=== PATIENT | female | born 1985 | race Two or more races ===

== ENCOUNTER 2024-12-11 05:10 | Emergency (ER) | payer MEDICAID, OTHER ==
[~2024-12-11] VITALS: Ht 160 cm; Wt 86.3 kg
[2024-12-11] MEDS: ALBUTEROL SULF 2.5 MG/0.5ML(0.5%) NEB SOLN NEB ONE (05:44)
[2024-12-11] MEDS: IPRATROPIUM BROM 0.5 MG/2.5ML INH SOL NEB ONE (05:44)
[2024-12-11 05:57] VITALS: BP 114/72; PULSE 114; RESP 18; TEMP 98.9; O2SAT 96
--- NOTE | 2024-12-11 07:21 | ED.PDOC ---
SOB-HPI HPI Comments This is a 39 year-old female who presents to the ED with a chief complaint of Asthma exacerbation with associated SOB and cough for X2 days. Patient reports associated "tightness in chest" with an inability to take full breaths. Patient reports using both Nebulizer and Humidifier at home, but denies any relief post treatment. Patient has no further complaints at this time and otherwise denies further symptoms of chest pain, N/V, dizziness, headache, or fever. Chief Complaint: Asthma Time Seen by MD: 07:10 Reviewed notes: Medications, Allergies Information Source: Patient Mode of Arrival: Ambulatory Severity: Moderate Timing: Days Duration: Since onset History of: Asthma Associated Signs and Symptoms: Cough, Other (SOB ) Radiation: No Radiation Past Medical History PAST MEDICAL HISTORY: Asthma Past Medical History (Other): Lupus Surgical History: Denies all surgeries [employer] History: No Pertinent [employer] History Family History Family History: Reviewed,noncontributory to illness, No family hx of Cancer, No family hx of DM, No family hx of Heart julianna, No family hx of HTN, No family hx ofKidney julianna, No family hx of Liver julianna, No family hx of Lung julianna, No family hx of Stroke Social History Smoker: Non-Smoker Alcohol: Denies ETOH Use Drugs: Denies Drug Use Lives In: Home Constitutional: denies: chills, diaphoresis, fatigue, fever, malaise, sweats, weakness, others EENTM: denies: blurred vision, double vision, ear bleeding, ear discharge, ear drainage, ear pain, ear ringing, eye pain, eye redness, hearing loss, mouth pain, mouth swelling, nasal discharge, nose bleeding, nose congestion, nose pain, photophobia, tearing, throat pain, throat swelling, voice changes, others Respiratory: reports: cough, SOB at rest, shortness of breath, SOB with exc ertion; denies: hemoptysis, orthopnea, stridor, wheezing, others Cardiovascular: denies: chest pain, dizzy spells, diaphoresis, Dyspnea on exertion, edema, irregular heart beat, left arm pain, lightheadedness, palpitations, PND, syncope, others Gastrointestinal: denies: abdomen distended, abdominal pain, blood streaked bowels, constipated, diarrhea, dysphagia, difficulty swallowing, hematemesis, melena, nausea, poor appetite, poor fluid intake, rectal bleeding, rectal pain, vomiting, others Genitourinary: denies: abnormal vagina bleeding, burning, dyspareunia, dysuria, flank pain, frequency, hematuria, incontinence, pain, , vagina discharge, urgency, others Neurological: denies: dizziness, fainting, headache, left sided numbness, left sided weakness, numbness, paresthesia, pre-existing deficit, right sided numbness, right sided weakness, seizure, speech problems, tingling, tremors, weakness, others Musculoskeletal: denies: back pain, gout, joint pain, joint swelling, muscle pain, muscle stiffness, neck pain, others Integumetry: denies: bruises, change in color, change in hair/nails, dryness, laceration, lesions, lumps, rash, wounds, others Allergic/Immunocompromised: denies: Difficulty Healing, Frequent Infections, H dafne, Itching, others Hematologic/Lymphatic: denies: anemia, blood clots, easy bleeding, easy bruising, swollen glands, others Endocrine: denies: excessive hunger, excessive sweating, excessive thirst, excessive urination, flushing, intolerance to cold, intolerance to heat, unexplained weight gain, unexplained weight loss, others Psychiatric: denies: anxiety, bipolar disorder, depression, hopeless, panic disorder, schizophrenia, sleepless, suicidal, others All Other Systems: Reviewed and Negative Physical Exam General Appearance: Moderate Distress HEENT: Normal ENT Inspection, Pharynx Normal, TMs Normal Neck: Full Range of Motion, Non-Tender, Normal, Normal Inspection Respiratory: Wheezing Cardiovascular: No Edema, No JVD, No Murmur, No Gallop, Normal Peripheral Pulses, Tachycardia Breast Exam: Deferred Gastrointestinal: No Organomegaly, Non Tender, No Pulsatile Mass, Normal Bowel Sounds, Soft Genitalia: Deferred Pelvic: Deferred Rectal: Deferred Extremities: No calf tenderness, Normal capillary refill, Normal inspection, Normal range of motion, Non-tender, No pedal edema Musculoskeletal : Apperance: Normal Neurologic: Alert, haz tech II-XII nml as Tested, No Motor Deficits, Normal Affect, Normal Mood, No Sensory Deficits Cerebellar Function: Normal Reflexes: Normal Skin: Dry, Normal Color, Warm Peripheral Pulses: 3+ Radial (R), 3+ Radial (L) Lymphatic: No Adenopathy Was a procedure done? Was a procedure done?: No Differential Dx Differential Diagnosis: Anxiety, Asthma, Bronchitis, COPD, Hypertension, Panic Attack, Pneumonia, Sinusitis X-Ray, Labs, Meds, VS Vital Signs Date Time Temp Pulse Resp B/P (MAP) Pulse Ox O2 Delivery O2 Flow Rate FiO2 12/11/24 05:57 98.9 114 18 114/72 (86) 96 98.9 12/11/24 05:44 22 96 Room Air* 0 21 12/11/24 05:12 98.6 125 26 124/78 95 98.6 Lab Test 12/11/24 07:39 Range/Units White Blood Count 13.4 H 4.4-10.8 10^3/uL Red Blood Count 4.68 4.0-5.20 10^6/uL Hemoglobin 14.4 12.2-16.2 g/dL Hematocrit 42.6 36.0-46.0 % Mean Corpuscular Volume 90.8 80.0-100.0 fL Mean Corpuscular Hemoglobin 30.6 28.0-32.0 pg Mean Corpuscular Hemoglobin Concent 33.7 32.0-36.0 g/dL Red Cell Distribution Width 14.5 H 11.8-14.3 % Platelet Count 378 140-450 10^3/uL Mean Platelet Volume 7.4 6.9-10.8 fL Neutrophils (%) (Auto) 87.9 H 37.0-80.0 % Lymphocytes (%) (Auto) 6.4 L 10.0-50.0 % Monocytes (%) (Auto) 2.8 0.0-12.0 % Eosinophils (%) (Auto) 2.6 0.0-7.0 % Basophils (%) (Auto) 0.3 0.0-2.0 % Neutrophils # (Auto) 11.8 H 1.6-8.6 10 ^3/uL Lymphocytes # (Auto) 0.9 0.4-5.4 10 ^3/uL Monocytes # (Auto) 0.4 0-1.3 10 ^3/uL Eosinophils # (Auto) 0.4 0-0.8 10 ^3/uL Basophils # (Auto) 0 0-0.2 10 ^3/uL Nucleated Red Blood Cells 0.0 % Sodium Level 140 136-145 mmol/L Potassium Level 3.8 3.5-5.1 mmol/L Chloride Level 104 98-107 mmol/L Carbon Dioxide Level 26 20-31 mmol/L Anion Gap 10 5-15 Blood Urea Nitrogen 16 9-23 mg/dL Creatinine 0.80 0.550-1.02 mg/dL Glomerular Filtration Rate Calc 95 >90 mL/min BUN/Creatinine Ratio 20.0 10.0-20.0 Serum Glucose 175 H 74-106 mg/dL Calcium Level 9.3 8.7-10.4 mg/dL Current Medications Medications (Trade) Dose Ordered Sig/Erin Route Start Time Stop Time Status Last Admin Albuterol (Ventolin Medneb) 5 mg ONCE ONCE NEB 12/11/24 05:15 12/11/24 05:16 DC 12/11/24 05:44 Ipratropium [place] (Atrovent Medneb) 0.5 mg ONCE ONCE NEB 12/11/24 05:15 12/11/24 05:16 DC 12/11/24 05:44 Dexamethasone Sodium Phosphate (Decadron Injection) 10 mg ONCE ONCE IM 12/11/24 05:15 12/11/24 05:16 DC 12/11/24 05:31 [place] [id number] Ph: [phone] DIAGNOSTIC IMAGING Diagnostic Imaging Report : [id number] Signed PATIENT: LEYDI MAGDALENO ACCT: [id number] UNIT: [id number] : 1985 LOC: ER ROOM / BED: / AGE / SEX: 39 / F ADM STATUS: REG ER SERVICE [id number] ORDERING PHYSICIAN: HERACLIO OLIVIER MD PROCEDURE(s): CXRP - CHEST PORTABLE REASON: sob ORDER NUMBER(s): [id number], ACCESSION NUMBER(s): [id number] CHEST RADIOGRAPH Indication: sob Technique: Single frontal view of the chest was obtained COMPARISON: None FINDINGS: Lines and Tubes: None Lungs: Clear Pleura: No effusion. No pneumothorax. Cardiomediastinal contours: Unremarkable Bones: Unremarkable IMPRESSION: No acute disease. Patient alert. Complaining of shortness a breath. History of asthma lupus. She does take prednisone daily. Was given breathing treatment. Was given dexamethasone. Blood sugar elevated. Possibly from steroid use. WBC slightly elevated. Possibly from steroid use. Hemoglobin within normal limits. Continues to have shortness a breath. Explained to the patient. Continue monitoring. Time of 1ST Reevaluation: 07:53 Reevaluation 1ST: Unchanged Patient Education/Counseling: Diagnosis, Treatment Family Education/Counseling: No Family Present SEPSIS Sepsis Screen Date sepsis recognized/suspect: Dec 11, 2024 Time Sepsis recognized/suspect: 0517 Recent Procedure: No On Antibiotic Therapy: No Respiratory Rate >20: Yes Heart Rate >90: Yes Temp<36 C (96.8 F) or >38.3 C: No SBP <90 or MAP <65 mmHG: No New Acute Mental Status Change: No Is the patient on CPAP, BIPAP,: No Physician Orders Chest Portable (12/11/24 07:22) Urinalysis (12/11/24 07:22) Ceftriaxone 1gm/50ml D5w (Rocephin) (12/11/24 08:15) Vital Signs Date Time Temp Pulse Resp B/P (MAP) Pulse Ox O2 Delivery O2 Flow Rate FiO2 12/11/24 05:57 98.9 114 18 114/72 (86) 96 98.9 12/11/24 05:44 22 96 Room Air* 0 21 12/11/24 05:12 98.6 125 26 124/78 95 98.6 Laboratory Tests Test 12/11/24 07:39 White Blood Count 13.4 10^3/uL (4.4-10.8) H Medications Medications Dose Ordered Sig/Erin Route Start Time Stop Time Status Last Admin Dose Admin Albuterol 5 mg ONCE ONCE NEB 12/11/24 05:15 12/11/24 05:16 DC 12/11/24 05:44 Dexamethasone Sodium Phosphate 10 mg ONCE ONCE IM 12/11/24 05:15 12/11/24 05:16 DC 12/11/24 05:31 Ipratropium [place] 0.5 mg ONCE ONCE NEB 12/11/24 05:15 12/11/24 05:16 DC 12/11/24 05:44 Departure 1 Departure Time of Disposition: 08:09 Impression: Primary Impression: Asthma exacerbation Qualified Codes: J45.41 - Moderate persistent asthma with (acute) exacerbation Disposition: ADMITTED INPATIENT Admit to: Med Surg Condition: Guarded Critical Care Note Critical Care Time?: Yes (90 min-critical care time only) Stability Stability form required: No Heart Score Heart Score: Heart Score Response (Comments) Value History N/A 0 EKG N/A 0 Age N/A 0 Risk Factors N/A 0 Troponin N/A 0 Total 0 I personally scribed for HERACLIO OLIVIER MD ([email or web address]) on 12/11/24 at 07:21. Electronically submitted by Felecia Campuzano ([employer]). I personally scribed for HERACLIO OLIVIER MD ([place]) on 12/11/24 at 08:17. Electronically submitted by Felecia Campuzano ([employer]). HERACLIO OLIVIER MD Dec 11, 2024 07:21
[2024-12-11 07:52] LABS: Hematocrit 42.6 % (36.0-46.0); Hemoglobin 14.4 g/dL (12.2-16.2); Mean Corpuscular Hemoglobin 30.6 pg (28.0-32.0); Mean Corpuscular Volume 90.8 fL (80.0-100.0); Nucleated Red Blood Cells % 0.0 %
[2024-12-11 07:56] LABS: Chloride 104 mmol/L (98-107); Potassium 3.8 mmol/L (3.5-5.1); Sodium 140 mmol/L (136-145)
[2024-12-11 07:57] LABS: Anion Gap 10 (5-15); Carbon Dioxide 26 mmol/L (20-31)
[2024-12-11 07:58] LABS: Calcium 9.3 mg/dL (8.7-10.4)
--- NOTE | 2024-12-11 07:59 | DVH ---
CHEST RADIOGRAPH Indication: sob Technique: Single frontal view of the chest was obtained COMPARISON: None FINDINGS: Lines and Tubes: None Lungs: Clear Pleura: No effusion. No pneumothorax. Cardiomediastinal contours: Unremarkable Bones: Unremarkable IMPRESSION: No acute disease.
[2024-12-11 08:03] LABS: BUN/Creatinine Ratio 20.0 (10.0-20.0); Blood Urea Nitrogen 16 mg/dL (9-23)
[2024-12-11 08:07] LABS: Glucose 175 mg/dL (74-106)
[2024-12-11] MEDS ORDERED: cefTRIAXone 1GM/50ML D5W 50 ML IV ONE (08:15)
== END 2024-12-11 08:49 | disposition left against medical advice (07) ==
LOC: ER 05:10
DX: J45.901 Unspecified asthma with (acute) exacerbation (principal)
CPT/HCPCS: 36415; 71045; 80048; 85025; 94640; 96372; 99284; J1100; 96374

== ENCOUNTER 2025-04-18 08:38 | Outpatient (CLI) | payer MEDICAID ==
[2025-04-18] MEDS ORDERED: ALBUTEROL SULF 2.5 MG/0.5ML(0.5%) NEB SOLN ONE (08:47)
== END 2025-04-18 17:00 | disposition home or self-care (01) ==
LOC: XYW 08:38
PROVIDERS: ATTEND Internal Medicine Pulmonary Disease
DX: J45.909 Unspecified asthma, uncomplicated (principal); R06.00 Dyspnea, unspecified
CPT/HCPCS: 94060; 94729